=== PATIENT | female | born 1975 | race Caucasian/White ===

== ENCOUNTER 2019-09-27 10:21 | Inpatient (IN) | payer MEDICAID, OTHER ==
[~2019-09-27] VITALS: Ht 160 cm; Wt 114.1 kg
[2019-09-27] MEDS ORDERED: CLINDAMYCIN 900MG IV 50 ML IV ONE (11:00)
[2019-09-27 11:27] LABS: Basophils # (auto) 0.1 10 ^3/uL (0-0.2); Basophils % (auto) 0.8 % (0.0-2.0); Eosinophils # (auto) 0.2 10 ^3/uL (0-0.8); Eosinophils % (auto) 2.1 % (0.0-7.0); Hematocrit 40.9 % (36.0-46.0); Hemoglobin 13.8 g/dL (12.2-16.2); Lymphocytes % (auto) 23.1 % (10.0-50.0); Mean Corpuscular Hemoglobin 28.9 pg (28.0-32.0); Mean Corpuscular Hgb Conc. 33.8 g/dL (32.0-36.0); Mean Corpuscular Volume 85.5 fL (80.0-100.0); Monocytes % (auto) 12.1 % (0.0-12.0); Neutrophils # (auto) 5.2 10 ^3/uL (1.6-8.6); Neutrophils % (auto) 61.9 % (37.0-80.0); Platelet Count (auto) 169 10^3/uL (140-450); Red Blood Cells 4.78 10^6/uL (4.0-5.20); Red Cell Distribution Width 13.5 % (11.8-14.3); White Blood Cell 8.5 10^3/uL (4.4-10.8)
[2019-09-27 11:44] LABS: Albumin 3.6 g/dL (3.4-5.0); Calcium 8.8 mg/dL (8.5-10.1)
[2019-09-27] MEDS ORDERED: KETOROLAC TROMETH 15 mg/ml 1ML VL IV ONE (11:45)
[2019-09-27 11:48] LABS: BUN/Creatinine Ratio 14.4; Bilirubin, Total 0.3 mg/dL (0.2-1.0); CRP High Sensitivity 0.85 mg/dL (< 0.3); Total Protein 7.2 g/dL (6.4-8.2)
[2019-09-27] MEDS ORDERED: TEMAZEPAM 15 MG CAP PO PRN (16:00)
[2019-09-27] MEDS ORDERED: cefTRIAXone 1GM/50ML D5W 50 ML IV ONE (16:00)
[2019-09-27] MEDS ORDERED: ACETAMINOPHEN 500 MG TAB PO PRN (16:00)
[2019-09-27] MEDS ORDERED: LACTULOSE 20Gm/30ML SOLN PO PRN (16:00)
[2019-09-27] MEDS ORDERED: ALBUTEROL SULF 2.5 MG/0.5ML(0.5%) NEB SOLN NEB PRN (16:00)
[2019-09-27] MEDS ORDERED: PROMETHAZINE HCL 25 MG/ML 1ML IV PRN (16:00)
[2019-09-27 17:09] LABS: Urine Bacteria FEW /hpf (None Seen); Urine Blood Negative /uL (Negative); Urine Mucus FEW (None Seen); Urine Specific Gravity 1.012 (1.001-1.035); Urine WBC <1 /hpf (0 - 5)
[2019-09-27] MEDS: SODIUM CHLORIDE 0.9% 1,000 ML IV SCH (17:16)
[2019-09-27] MEDS: traMADol HCL 50 MG TAB PO PRN (17:17)
[2019-09-27 18:51] VITALS: BP 113/74
[2019-09-27 20:00] VITALS: BP 103/51
[2019-09-27 21:56] VITALS: BP 113/74
[2019-09-27 22:00] VITALS: BP 103/51
[2019-09-27] MEDS: KETOROLAC TROMETH 15 mg/ml 1ML VL IV PRN (22:10)
[2019-09-27] MEDS: FAMOTIDINE 20 MG TAB PO SCH (22:10)
[2019-09-27] MEDS: CLINDAMYCIN 600MG IV 50 ML IV SCH (22:11)
[2019-09-28] MEDS: SODIUM CHLORIDE 0.9% 1,000 ML IV SCH (02:34)
[2019-09-28 05:00] VITALS: BP 118/67
[2019-09-28] MEDS: CLINDAMYCIN 600MG IV 50 ML IV SCH ×3 (05:33→21:41)
[2019-09-28 09:00] VITALS: BP 156/100
[2019-09-28] MEDS: KETOROLAC TROMETH 15 mg/ml 1ML VL IV PRN ×3 (09:00→21:43)
[2019-09-28] MEDS: cefTRIAXone 1GM/50ML D5W 50 ML IV SCH (09:34)
[2019-09-28] MEDS: FAMOTIDINE 20 MG TAB PO SCH ×2 (09:34→21:41)
[2019-09-28] MEDS: ENOXAPARIN SOD 40 MG/0.4 ML SYRINGE SC SCH ×2 (09:34→10:00)
[2019-09-28] MEDS: traMADol HCL 50 MG TAB PO PRN ×2 (10:39→21:42)
[2019-09-28 13:00] VITALS: BP 119/71
[2019-09-28] MEDS ORDERED: FUROSEMIDE 20 MG/2 ML VIAL IV ONE (13:15)
[2019-09-28 15:37] LABS: Amphetamine Screen, Urine POSITIVE (NEGATIVE); Barbiturate Scree,Urine NEGATIVE (NEGATIVE); Benzodiazephine Screen, Urine NEGATIVE (NEGATIVE); Cannabinoid Screen, Urine NEGATIVE (NEGATIVE); Cocaine Screen, Urine NEGATIVE (NEGATIVE); Opiate Scree,Urine NEGATIVE (NEGATIVE); Phencyclidine Screen, Urine NEGATIVE (NEGATIVE)
[2019-09-28 16:29] LABS: Alcohol, Urine < 3.0 mg/dL (0-5)
[2019-09-28 16:37] VITALS: BP 128/63
[2019-09-28 16:40] VITALS: BP 119/65
[2019-09-28 22:00] VITALS: BP 106/51
[2019-09-29 05:42] VITALS: BP 94/49
[2019-09-29] MEDS: CLINDAMYCIN 600MG IV 50 ML IV SCH (06:34)
[2019-09-29 08:56] VITALS: BP 113/60
[2019-09-29] MEDS: ENOXAPARIN SOD 40 MG/0.4 ML SYRINGE SC SCH (10:00)
[2019-09-29] MEDS: FAMOTIDINE 20 MG TAB PO SCH (10:00)
[2019-09-29] MEDS: cefTRIAXone 1GM/50ML D5W 50 ML IV SCH (10:23)
[2019-09-29] MEDS ORDERED: CLIN300C8 PO (10:28)
[2019-09-29 12:10] VITALS: BP 123/71
[2019-09-29 13:00] VITALS: BP 123/71
== END 2019-09-29 13:05 | disposition home or self-care (01) | DRG 383 ==
LOC: ER 10:21 → WEST WING 10:22
PROVIDERS: ADMIT Internal Medicine; ATTEND Internal Medicine
DX: L03.115 Cellulitis of right lower limb (principal); E66.01 Morbid (severe) obesity due to excess calories; J45.909 Unspecified asthma, uncomplicated; F15.90 Other stimulant use, unspecified, uncomplicated; Z90.49 Acquired absence of other specified parts of digestive tract; Z83.3 Family history of diabetes mellitus; Z87.891 Personal history of nicotine dependence; Z80.9 Family history of malignant neoplasm, unspecified; Z80.6 Family history of leukemia; Z68.41 Body mass index [BMI] 40.0-44.9, adult
CPT/HCPCS: 36415; 73590; 80053; 80307; 81001; 85025; 86141; 87040; 93971; 96365; 96366; 96367; 96375; G0378; J0696; J3490